=== PATIENT | male | born 1940 | race Two or more races ===

== ENCOUNTER 2018-12-06 18:05 | Emergency (ER) | payer MEDICARE ==
[~2018-12-06] VITALS: Ht 180.3 cm; Wt 97.5 kg
[2018-12-06 18:45] LABS: Basophils # (auto) 0 uL; Basophils % (auto) 0.3 % (0.0-2.0); Eosinophils # (auto) 0.2 uL; Eosinophils % (auto) 3.4 % (0.0-7.0); Hematocrit 44.8 % (41.0-53.0); Hemoglobin 15.4 g/dL (13.5-17.5); Lymphocytes # (auto) 1.6 uL; Lymphocytes % (auto) 30.4 % (10.0-50.0); Mean Corpuscular Hemoglobin 32.1 pg (28.0-32.0); Mean Corpuscular Hgb Conc. 34.4 g/dL (32.0-36.0); Mean Corpuscular Volume 93.3 fL (80.0-100.0); Monocytes # (auto) 0.6 uL; Monocytes % (auto) 10.4 % (0.0-12.0); Neutrophils % (auto) 55.5 % (37.0-80.0); Platelet Count (auto) 115 10^3/uL (140-450); Red Blood Cells 4.81 10^6/uL (4.5-5.90); Red Cell Distribution Width 15.5 % (11.8-14.3); White Blood Cell 5.4 10^3/uL (4.4-10.8)
[2018-12-06 18:57] LABS: Albumin 3.6 g/dL (3.4-5.0); Anion Gap 6 (5-15); Blood Urea Nitrogen 18 mg/dL (7-18); Calcium 8.2 mg/dL (8.5-10.1); Carbon Dioxide 26 mmol/L (21-32); Chloride 108 mmol/L (98-107); Glucose 84 mg/dL (74-106); Sodium 140 mmol/L (136-145)
[2018-12-06 18:59] LABS: Alanine Aminotransferase 18 U/L (16-61); Aspartate Aminotransferase 17 U/L (15-37); BUN/Creatinine Ratio 11.3; GFR African American 54 mL/min; GFR Non-African American 45 mL/min
[2018-12-06 19:04] LABS: Alkaline Phosphatase 100 U/L (45-117); Bilirubin, Total 0.6 mg/dL (0.2-1.0); Total Protein 7.3 g/dL (6.4-8.2)
[2018-12-06 19:39] VITALS: BP 207/104
[2018-12-06] MEDS ORDERED: cloNIDine HCL 0.1 MG TAB PO ONE (19:45)
== END 2018-12-06 20:55 | disposition home or self-care (01) ==
LOC: ER 18:05
DX: I16.0 Hypertensive urgency (principal); I10 Essential (primary) hypertension; K21.9 Gastro-esophageal reflux disease without esophagitis; Z90.49 Acquired absence of other specified parts of digestive tract
CPT/HCPCS: 36415; 71046; 80053; 84484; 85025; 93005

== ENCOUNTER 2018-12-15 07:58 | Emergency (ER) | payer MEDICARE ==
[~2018-12-15] VITALS: Ht 180.3 cm; Wt 96.2 kg
[2018-12-15] MEDS ORDERED: cloNIDine HCL 0.1 MG TAB PO ONE (08:30)
[2018-12-15 09:27] VITALS: BP 151/78
== END 2018-12-15 09:31 | disposition home or self-care (01) ==
LOC: ER 08:01
DX: I10 Essential (primary) hypertension (principal); K21.9 Gastro-esophageal reflux disease without esophagitis

== ENCOUNTER 2018-12-15 18:50 | Emergency (ER) | payer MEDICARE ==
[~2018-12-15] VITALS: Ht 180.3 cm; Wt 95.3 kg
[2018-12-15 23:02] VITALS: BP 182/100
[2018-12-15] MEDS ORDERED: amLODIPine BESYLATE 5 MG TAB PO ONE (23:15)
[2018-12-15] MEDS ORDERED: LOSARTAN POTASSIUM 50 MG TAB PO ONE (23:15)
== END 2018-12-15 23:42 | disposition home or self-care (01) ==
LOC: ER 18:59
DX: I10 Essential (primary) hypertension (principal); K21.9 Gastro-esophageal reflux disease without esophagitis; Z90.49 Acquired absence of other specified parts of digestive tract; Z90.89 Acquired absence of other organs

== ENCOUNTER 2021-03-31 10:23 | Emergency (ER) | payer MEDICARE ==
[~2021-03-31] VITALS: Ht 180.3 cm; Wt 90.7 kg
[2021-03-31] MEDS ORDERED: SODIUM CHLORIDE 0.9% 1,000 ML IV ONE (11:30)
[2021-03-31] MEDS ORDERED: LIDOCAINE 2%HCL (LOCAL ANESTH.) INJ 20ML MDV ID ONE (12:00)
[2021-03-31 12:16] LABS: Basophils # (auto) 0 10 ^3/uL (0-0.2); Basophils % (auto) 0.3 % (0.0-2.0); Eosinophils # (auto) 0.1 10 ^3/uL (0-0.8); Eosinophils % (auto) 0.9 % (0.0-7.0); Hematocrit 37.7 % (41.0-53.0); Hemoglobin 13.1 g/dL (13.5-17.5); Lymphocytes # (auto) 0.5 10 ^3/uL (0.4-5.4); Lymphocytes % (auto) 7.4 % (10.0-50.0); Mean Corpuscular Hemoglobin 32.8 pg (28.0-32.0); Mean Corpuscular Hgb Conc. 34.6 g/dL (32.0-36.0); Mean Corpuscular Volume 94.9 fL (80.0-100.0); Monocytes # (auto) 0.4 10 ^3/uL (0-1.3); Monocytes % (auto) 6.2 % (0.0-12.0); Neutrophils # (auto) 5.8 10 ^3/uL (1.6-8.6); Neutrophils % (auto) 85.2 % (37.0-80.0); Nucleated Red Blood Cells % 0.1 %; Red Blood Cells 3.98 10^6/uL (4.5-5.90); Red Cell Distribution Width 13.3 % (11.8-14.3); White Blood Cell 6.9 10^3/uL (4.4-10.8)
[2021-03-31 12:33] LABS: INR 1.09 (0.9-1.15); Partial Thromboplastin Time 24.8 sec (23.6-33.0)
[2021-03-31 12:51] LABS: Albumin 3.4 g/dL (3.4-5.0); Calcium 8.7 mg/dL (8.5-10.1); Magnesium 3.4 mg/dL (1.6-2.6); Potassium 5.1 mmol/L (3.5-5.1)
[2021-03-31 12:56] LABS: Bilirubin, Total 0.6 mg/dL (0.2-1.0); Total Protein 7.5 g/dL (6.4-8.2)
[2021-03-31] MEDS ORDERED: LABETALOL HCL 5 MG/ML 4ML SYRINGE IV ONE ×2 (16:06→16:15)
[2021-03-31] MEDS ORDERED: MIDAZOLAM HCL 5 MG/ML-1ML VIAL ONE (16:35)
[2021-03-31] MEDS ORDERED: ETOMIDATE (2MG/ML) 20ML VIAL IV ONE ×2 (16:35→16:45)
[2021-03-31] MEDS ORDERED: MIDAZOLAM DRIP 50 mg/50mL 50 ML IV ONE (16:35)
[2021-03-31] MEDS ORDERED: MIDAZOLAM DRIP 50 mg/50mL 50 ML IV SCH (16:45)
[2021-03-31] MEDS: MIDAZOLAM HCL 5 MG/ML-1ML VIAL IV ONE ×2 (17:02→17:04)
[2021-03-31 17:07] VITALS: BP 148/97
== END 2021-03-31 17:10 | disposition short-term general hospital (02) ==
LOC: ER 10:23
DX: U07.1 COVID-19 (principal); S01.01XA Laceration without foreign body of scalp, initial encounter; S06.6X0A Traumatic subarachnoid hemorrhage without loss of consciousness, initial encounter; I10 Essential (primary) hypertension; K21.9 Gastro-esophageal reflux disease without esophagitis; Z90.49 Acquired absence of other specified parts of digestive tract; Z90.89 Acquired absence of other organs; W18.39XA Other fall on same level, initial encounter; Y93.89 Activity, other specified; Y92.89 Other specified places as the place of occurrence of the external cause; Y99.8 Other external cause status
CPT/HCPCS: 12002; 31500; 36415; 70450; 71045; 72125; 80053; 82962; 83735; 85025; 85610; 85730; 87426; 93005; 96361; 96374; 99291; J2250; J3490; J7030